=== PATIENT | male | born 1955 | race Caucasian/White ===

== ENCOUNTER 2016-12-15 17:40 | Inpatient (IN) | payer OTHER ==
[~2016-12-15] VITALS: Ht 182.9 cm; Wt 89.0 kg
[2016-12-15 18:25] LABS: Basophils # (auto) 0 uL; Basophils % (auto) 0.8 % (0.0-2.0); Eosinophils # (auto) 0.2 uL; Eosinophils % (auto) 5.6 % (0.0-7.0); Hematocrit 37.4 % (41.0-53.0); Hemoglobin 12.5 g/dL (13.5-17.5); Lymphocytes # (auto) 1.2 uL; Lymphocytes % (auto) 29.6 % (10.0-50.0); Mean Corpuscular Hemoglobin 28.3 pg (28.0-32.0); Mean Corpuscular Hgb Conc. 33.4 g/dL (32.0-36.0); Mean Corpuscular Volume 84.7 fL (80.0-100.0); Mean Platelet Volume 8.4 fL (7.4-10.4); Monocytes # (auto) 0.4 uL; Neutrophils # (auto) 2.3 uL; Platelet Count (auto) 108 10^3/uL (140-450); Red Cell Distribution Width 15.8 % (11.6-16.0); White Blood Cell 4.1 10^3/uL (4.4-10.8)
[2016-12-15 18:30] LABS: Urine RBC None Seen /hpf (0 - 3)
[2016-12-15 18:53] LABS: Albumin 3.8 g/dL (3.4-5.0); BUN/Creatinine Ratio 9.4; Calcium 8.2 mg/dL (8.5-10.1); Potassium 3.5 mmol/L (3.5-5.1)
[2016-12-15 18:58] LABS: Bilirubin, Total 0.6 mg/dL (0.2-1.0); Total Protein 7.7 g/dL (6.4-8.2)
[2016-12-15 19:04] LABS: Urine Bilirubin Negative (Negative); Urine Blood Negative /uL (Negative); Urine Color Yellow (Yellow); Urine Glucose Normal (Normal); Urine Ketone Negative (Negative); Urine Nitrite Negative (Negative); Urine Urobilinogen Normal (Negative); Urine pH 6.5 (5.0-8.0)
[2016-12-15] MEDS ORDERED: ASPirin 81 mg TAB PO ONE (23:00)
[2016-12-15] MEDS ORDERED: ONDANSETRON HCL 4 MG/2 ML VIAL IV ONE (23:00)
[2016-12-15] MEDS ORDERED: MORPHINE SULFATE 4 MG/ML SYRG IV ONE (23:00)
[2016-12-16] MEDS ORDERED: HYDROcodone-ACET 5/325MG TAB PO PRN (00:15)
[2016-12-16] MEDS ORDERED: MORPHINE SULF INJ 2 MG/ML SYRINGE 1ML IV PRN (00:15)
[2016-12-16] MEDS ORDERED: NITROGLYCERIN 0.4 MG SL TAB SL PRN (00:15)
[2016-12-16] MEDS ORDERED: ONDANSETRON HCL 4 MG/2 ML VIAL IV PRN (00:15)
[2016-12-16] MEDS ORDERED: DEXTROSE (50%) 50ML SYRG IV PRN ×2 (00:15→14:30)
[2016-12-16 01:30] VITALS: BP 137/80
[2016-12-16 05:19] VITALS: BP 156/86
[2016-12-16] MEDS ORDERED: BECL80AE9 IN (06:32)
[2016-12-16] MEDS ORDERED: SIMV-8 PO (06:32)
[2016-12-16] MEDS ORDERED: PRO10T PO (06:32)
[2016-12-16] MEDS ORDERED: EMPA1TAB PO (06:32)
[2016-12-16] MEDS ORDERED: GEMF600T3 PO (06:32)
[2016-12-16] MEDS ORDERED: SUCR1TAB PO (06:32)
[2016-12-16] MEDS ORDERED: PANT40T PO (06:32)
[2016-12-16] MEDS ORDERED: LISI-646 PO (06:32)
[2016-12-16] MEDS ORDERED: HYDR12.56 PO (06:32)
[2016-12-16] MEDS ORDERED: CHOL100040 PO (06:32)
[2016-12-16] MEDS ORDERED: ALBUAER3 IN (06:32)
[2016-12-16] MEDS ORDERED: PAR20T PO (06:32)
[2016-12-16] MEDS: InsuLIN REG 1unit/0.01ml Soln (100units/ml) SC SCH ×4 (06:35→22:00)
[2016-12-16] MEDS: ACCU-CHEK COMFORT CURVE STRIP VI SCH ×4 (07:02→22:00)
[2016-12-16] MEDS: ACETAMINOPHEN 325 MG TAB PO PRN (07:06)
[2016-12-16] MEDS: ENOXAPARIN SOD 40 MG/0.4 ML SYRINGE SC SCH (08:32)
[2016-12-16] MEDS: GEMFIBROZIL 600 MG TAB PO SCH ×2 (08:32→22:55)
[2016-12-16] MEDS: PARoxetine 20 MG TAB PO SCH (08:32)
[2016-12-16] MEDS: FAMOTIDINE 20 MG TAB PO SCH ×2 (08:32→22:55)
[2016-12-16] MEDS: ASPirin 81 mg TAB PO SCH (08:33)
[2016-12-16] MEDS: LISINOPRIL 20 MG TAB PO SCH (08:33)
[2016-12-16 09:00] VITALS: BP 160/96
[2016-12-16] MEDS ORDERED: HCTZ 25 MG TAB PO SCH (10:00)
[2016-12-16] MEDS ORDERED: NITROGLYCERIN 0.4 MG SL TAB SL ONE (10:00)
[2016-12-16 13:00] VITALS: BP 152/78
[2016-12-16] MEDS ORDERED: METOPROLOL TARTRATE 25 MG TAB PO ONE (14:30)
[2016-12-16 14:58] LABS: B-Type Natriuretic Peptide 21.15 pg/mL (0-100)
[2016-12-16 16:08] LABS: Temperature: 23.3 C (20.0-25.0)
[2016-12-16 17:00] VITALS: BP 154/86
[2016-12-16] MEDS: SUCRALFATE 1 GM TAB PO SCH ×2 (17:53→22:54)
[2016-12-16 22:00] VITALS: BP 123/67
[2016-12-16] MEDS: ATORVASTATIN 20 MG TAB PO SCH (22:54)
[2016-12-16] MEDS: METOPROLOL TARTRATE 25 MG TAB PO SCH (22:55)
[2016-12-17 04:54] VITALS: BP 118/64
[2016-12-17 06:06] LABS: Basophils # (auto) 0 uL; Basophils % (auto) 0.7 % (0.0-2.0); Eosinophils # (auto) 0.2 uL; Eosinophils % (auto) 6.2 % (0.0-7.0); Hematocrit 37.2 % (41.0-53.0); Hemoglobin 12.3 g/dL (13.5-17.5); Lymphocytes # (auto) 1.2 uL; Lymphocytes % (auto) 33.6 % (10.0-50.0); Mean Corpuscular Hemoglobin 27.9 pg (28.0-32.0); Mean Corpuscular Volume 84.3 fL (80.0-100.0); Mean Platelet Volume 8.6 fL (7.4-10.4); Monocytes # (auto) 0.3 uL; Monocytes % (auto) 9.1 % (0.0-12.0); Neutrophils # (auto) 1.8 uL; Neutrophils % (auto) 50.4 % (37.0-80.0); Platelet Count (auto) 105 10^3/uL (140-450); Red Cell Distribution Width 15.5 % (11.6-16.0); White Blood Cell 3.6 10^3/uL (4.4-10.8)
[2016-12-17] MEDS: ACCU-CHEK COMFORT CURVE STRIP VI SCH ×4 (06:18→22:00)
[2016-12-17] MEDS: InsuLIN REG 1unit/0.01ml Soln (100units/ml) SC SCH ×4 (06:18→22:00)
[2016-12-17] MEDS: SUCRALFATE 1 GM TAB PO SCH ×4 (06:21→22:51)
[2016-12-17 06:54] LABS: Albumin 3.5 g/dL (3.4-5.0); Bilirubin, Total 0.8 mg/dL (0.2-1.0); Calcium 9.1 mg/dL (8.5-10.1); Magnesium 2.3 mg/dL (1.6-2.6); Total Protein 7.3 g/dL (6.4-8.2)
[2016-12-17 09:00] VITALS: BP 145/81
[2016-12-17] MEDS: FAMOTIDINE 20 MG TAB PO SCH ×2 (09:36→22:52)
[2016-12-17] MEDS: ASPirin 81 mg TAB PO SCH (09:36)
[2016-12-17] MEDS: METOPROLOL TARTRATE 25 MG TAB PO SCH ×2 (09:37→22:53)
[2016-12-17] MEDS: GEMFIBROZIL 600 MG TAB PO SCH ×2 (09:37→22:52)
[2016-12-17] MEDS: LISINOPRIL 20 MG TAB PO SCH (09:37)
[2016-12-17] MEDS: PARoxetine 20 MG TAB PO SCH (09:38)
[2016-12-17] MEDS: ENOXAPARIN SOD 40 MG/0.4 ML SYRINGE SC SCH (09:38)
[2016-12-17 13:00] VITALS: BP 135/79
[2016-12-17] MEDS ORDERED: IOHEXOL 350 MG/ML 100ML IJ ONE (13:43)
[2016-12-17] MEDS ORDERED: NITROGLYCERIN 0.4 MG SL TAB SL ONE (13:44)
[2016-12-17] MEDS ORDERED: METOPROLOL TARTRATE 1MG/1ML-5ML VIAL IV ONE (13:45)
[2016-12-17 17:00] VITALS: BP 157/81
[2016-12-17 22:00] VITALS: BP 127/65
[2016-12-17] MEDS: ATORVASTATIN 20 MG TAB PO SCH (22:51)
[2016-12-18 05:30] VITALS: BP 118/64
[2016-12-18] MEDS: InsuLIN REG 1unit/0.01ml Soln (100units/ml) SC SCH ×2 (06:24→11:30)
[2016-12-18] MEDS: ACCU-CHEK COMFORT CURVE STRIP VI SCH ×2 (06:24→11:30)
[2016-12-18] MEDS: SUCRALFATE 1 GM TAB PO SCH ×2 (06:26→12:05)
[2016-12-18 08:18] VITALS: BP 130/69
[2016-12-18] MEDS ORDERED: ADENOSINE 75 MG in GIVE UN-DILUTED 0 ML IV ONE (08:30)
[2016-12-18 12:00] VITALS: BP 144/80
[2016-12-18] MEDS: LISINOPRIL 20 MG TAB PO SCH (12:05)
[2016-12-18] MEDS: ACETAMINOPHEN 325 MG TAB PO PRN (12:05)
[2016-12-18] MEDS: GEMFIBROZIL 600 MG TAB PO SCH (12:06)
[2016-12-18] MEDS: METOPROLOL TARTRATE 25 MG TAB PO SCH (12:06)
[2016-12-18] MEDS: PARoxetine 20 MG TAB PO SCH (12:06)
[2016-12-18] MEDS: FAMOTIDINE 20 MG TAB PO SCH (12:07)
[2016-12-18] MEDS: ENOXAPARIN SOD 40 MG/0.4 ML SYRINGE SC SCH (12:07)
[2016-12-18] MEDS: ASPirin 81 mg TAB PO SCH (12:07)
== END 2016-12-18 14:30 | disposition home or self-care (01) | DRG 203 ==
LOC: ER 17:48 → TELE-CENTR 17:49
PROVIDERS: ADMIT Nurse Practitioner; ATTEND Internal Medicine
DX: R07.9 Chest pain, unspecified (principal); D70.9 Neutropenia, unspecified; E44.1 Mild protein-calorie malnutrition; I10 Essential (primary) hypertension; J44.9 Chronic obstructive pulmonary disease, unspecified; E11.9 Type 2 diabetes mellitus without complications; D64.9 Anemia, unspecified; E78.5 Hyperlipidemia, unspecified; K21.9 Gastro-esophageal reflux disease without esophagitis; F17.210 Nicotine dependence, cigarettes, uncomplicated; Z80.0 Family history of malignant neoplasm of digestive organs; Z80.6 Family history of leukemia; Z71.6 Tobacco abuse counseling; Z79.899 Other long term (current) drug therapy; Z88.8 Allergy status to other drugs, medicaments and biological substances; Z68.26 Body mass index [BMI] 26.0-26.9, adult
CPT/HCPCS: 36415; 71010; 75574; 78452; 80053; 80061; 81001; 82962; 83036; 83735; 83880; 84484; 85025; 93005; 93017; 93306; J0153